=== PATIENT | male | born 1950 | race Caucasian/White ===

== ENCOUNTER 2016-06-11 13:48 | Emergency (ER) | payer SELFPAY ==
[2016-06-11] MEDS ORDERED: ASPIRIN 81 MG TABLET, CHEWABLE PO ONE (14:09)
--- NOTE | 2016-06-11 14:09 | ER Document Report ---
ED Medical Screen (RME) - General Stated Complaint: CHEST PAIN Notes: patient is a 65 year old male p/w chest pain and productive cough for one week that has gooten worse about two days ago. SOB, dyspnea. Chest pain is worse with cough. Albuterol nebulizers helping with cough. PMH: COPD on 3L, CAD former smoker Stress test 3-4 years ago but denies cath I have greeted and performed a rapid initial assessment of this patient. A comprehensive ED assessment and evaluation of the patient, analysis of test results and completion of the medical decision making process will be conducted by additional ED providers. TRAVEL OUTSIDE OF THE [place] IN LAST 30 DAYS: No - Related Data Allergies/Adverse Reactions: No Known Allergies Allergy (Verified 06/11/16 14:05) Past Medical History Pulmonary Medical History: Reports: Hx COPD Neurological Medical History: Denies: Hx Seizures Psychiatric Medical History: Denies: Hx Depression - Immunizations Hx Diphtheria, Pertussis, Tetanus Vaccination: Yes Physical Exam - Vital signs Vitals: Temp Pulse Resp BP Pulse Ox 98.1 F 115 H 16 120/67 84 L 06/11/16 14:00 06/11/16 14:00 06/11/16 14:00 06/11/16 14:00 06/11/16 14:00 Course - Vital Signs Vital signs: Temp Pulse Resp BP Pulse Ox 98.1 F 115 H 16 120/67 84 L 06/11/16 14:00 06/11/16 14:00 06/11/16 14:00 06/11/16 14:00 06/11/16 14:00
[2016-06-11] MEDS ORDERED: METHYLPREDNISOLONE INJ 125 MG/2 ML SDV IV ONE (14:10)
[2016-06-11] MEDS ORDERED: IPRATROPIUM/ALBUTEROL 0.5-2.5 MG/3 ML AMPUL NEB ONE (14:10)
[2016-06-11 14:46] LABS: HEMATOCRIT 50.9 % (37.9-51.0); HEMOGLOBIN 17.3 g/dL (13.5-17.0); MEAN CORPUSCULAR HEMOGLOBIN 34.1 pg (27.0-33.4); MEAN CORPUSCULAR VOLUME 100 fl (80-97); RED BLOOD COUNT 5.07 10^6/uL (4.35-5.55); RED CELL DISTRIBUTION WIDTH 13.4 % (11.5-14.0); WHITE BLOOD COUNT 10.2 10^3/uL (4.0-10.5)
[2016-06-11] MEDS: ALBUTEROL SULFATE 0.083% NEB 2.5 MG/3 ML AMPUL NEB SCH ×2 (14:56→15:22)
[2016-06-11 15:07] LABS: BAND NEUTROPHILS % (MANUAL) 6 % (3-5); BASOPHILS % (MANUAL) 0 % (0-2); EOSINOPHILS % (MANUAL) 0 % (0-6); LYMPHOCYTES % (MANUAL) 14 % (13-45); TOTAL CELLS COUNTED 100
[2016-06-11 15:08] LABS: POLYCHROMASIA 1+
[2016-06-11 15:10] LABS: ALANINE AMINOTRANSFERASE 33 U/L (21-72); ALBUMIN 4.2 g/dL (3.5-5.0); ALKALINE PHOSPHATASE 91 U/L (38-126); ANION GAP 14 (5-19); ASPARTATE AMINO TRANSFERASE 43 U/L (17-59); BILIRUBIN,TOTAL 0.6 mg/dL (0.2-1.3); BLOOD UREA NITROGEN 10 mg/dL (7-20); CALCIUM 9.8 mg/dL (8.4-10.2); CARBON DIOXIDE 37 mmol/L (22-30); CHLORIDE 88 mmol/L (98-107); CREATINE KINASE 26 U/L (55-170); CREATININE RESULT 0.55 mg/dL (0.52-1.25); GLUCOSE 124 mg/dL (75-110); POTASSIUM 4.2 mmol/L (3.6-5.0); SODIUM 139.4 mmol/L (137-145); TOTAL PROTEIN 7.9 g/dL (6.3-8.2)
--- NOTE | 2016-06-11 15:12 | ER Document Report ---
ED Respiratory Problem - General Mode of Arrival: Ambulatory Information source: Patient TRAVEL OUTSIDE OF THE [place] IN LAST 30 DAYS: No - HPI Patient complains to provider of: Short of breath <NERI FUNES - Last Filed: 06/11/16 19:43> <EMMA LA - Last Filed: 06/17/16 22:29> - General Chief Complaint: Chest Pain Stated Complaint: CHEST PAIN Notes: Patient is a 65-year-old male that presents to the emergency department today with complaints of shortness of breath. Patient states he is on 3L of home O2 at all times. Patient states his son had an upper respiratory illness recently and he visited him so he believes he caught a virus from his son. Patient states he has albuterol treatments at home. Patient states he has had a cough and chills at home. Patient denies any fevers or recent steroid use. (NERI FUNES) - Related Data Allergies/Adverse Reactions: No Known Allergies Allergy (Verified 06/11/16 14:05) Past Medical History - General Information source: Patient - Social History Smoking Status: Former Smoker Cigarette use (# per day): No Chew tobacco use (# tins/day): No Frequency of alcohol use: None Drug Abuse: None Lives with: Family Family History: Reviewed & Not Pertinent Patient has suicidal ideation: No Patient has homicidal ideation: No Pulmonary Medical History: Reports: Hx COPD Surgical Hx: Negative - Immunizations Hx Diphtheria, Pertussis, Tetanus Vaccination: Yes <NERI FUNES - Last Filed: 06/11/16 19:43> Review of Systems - Review of Systems Constitutional: See HPI, Chills. denies: Fever EENT: No symptoms reported Cardiovascular: No symptoms reported Respiratory: See HPI, Cough, Short of breath Gastrointestinal: No symptoms reported Genitourinary: No symptoms reported Male Genitourinary: No symptoms reported Musculoskeletal: No symptoms reported Skin: No symptoms reported Hematologic/Lymphatic: No symptoms reported Neurological/Psychological: No symptoms reported -: Yes All other systems reviewed and negative <NREI FUNES - Last Filed: 06/11/16 19:43> Physical Exam - General General appearance: Appears well, Alert In distress: None - HEENT Head: Normocephalic, Atraumatic Eyes: Normal Extraocular movements intact: Yes - Respiratory Respiratory status: No respiratory distress Breath sounds: Wheezing - expiratory Chest palpation: Normal - Cardiovascular Rhythm: Regular Heart sounds: Normal auscultation Murmur: No - Abdominal Inspection: Normal Distension: No distension Bowel sounds: Normal Tenderness: Nontender - Extremities General upper extremity: Normal inspection, Normal ROM. No: Edema General lower extremity: Normal inspection, Normal ROM. No: Edema - Neurological Neuro grossly intact: Yes Cognition: Normal Orientation: AAOx4 Speech: Normal - Psychological Associated symptoms: Normal affect, Normal mood - Skin Skin Temperature: Warm Skin Moisture: Dry Skin Color: Normal <NERI FUNES - Last Filed: 06/11/16 19:43> Course - Laboratory Result Diagrams: 06/11/16 14:15 06/11/16 14:15 <NERI FUNES - Last Filed: 06/11/16 19:43> - Laboratory Result Diagrams: 06/11/16 14:15 06/11/16 14:15 <EMMA LA - Last Filed: 06/17/16 22:29> - Re-evaluation Re-evalutation: 06/11/16 19:01 I personally performed the services described in the documentation, reviewed and edited the documentation which was dictated to my scribe in my presence, and it accurately records my words and actions. Patient with a history of severe COPD presents with a one-week history of cough and chest congestion. He was a long-time smoker quit recently started and then quit again. He says his chest hurts only with coughing. He is on 3 L of oxygen at home not taking anything other than albuterol. No fevers chills chest pain pressure or exertional chest pain or showers breath denies a cardiac history no nausea vomiting dull pain history DVT or pulmonary emboli. On examination he is well-appearing nontoxic 89-92% on his 3 L that he takes at home. Normotensive lungs with expiratory wheeze improved with albuterol and Solu-Medrol. Chest x- ray negative for pneumonia negative acute labs. We will discharge on steroids told to take [id number] allergy medication for primary care physician to 3 days and discussed reasons for ED return sooner 06/11/16 19:03 06/11/16 19:07 (EMMA LA) - Vital Signs Vital signs: Temp Pulse Resp BP Pulse Ox 98 F 115 H 16 128/98 H 91 L 06/11/16 19:00 06/11/16 14:00 06/11/16 19:03 06/11/16 19:03 06/11/16 19:03 - Laboratory Laboratory results interpreted by me: 06/11/16 06/11/16 14:15 14:15 Hgb 17.3 H MCV 100 H MCH 34.1 H Band Neutrophils % 6 H Monocytes % (Manual) 17 H Abs Monocytes (Manual) 1.7 H Chloride 88 L Carbon Dioxide 37 H Glucose 124 H Creatine Kinase 26 L Discharge <NERI FUNES - Last Filed: 06/11/16 19:43> <EMMA LA - Last Filed: 06/17/16 22:29> - Discharge Clinical Impression: COPD (chronic obstructive pulmonary disease) Qualifiers: COPD type: emphysema Emphysema type: unspecified Qualified Code(s): J43.9 - Emphysema, unspecified Condition: Stable Disposition: HOME, SELF-CARE Additional Instructions: Bronchitis/copd You have acute bronchitis. This disease is an infection or inflammation of the air passageways in your lungs. Symptoms usually include cough, low grade fever, shortness of breath, and wheezing. The cough usually persists for a couple of weeks. Most cases of bronchitis get better without antibiotics. We prescribe antibiotics when we believe bacteria are damaging your airways, or if there's high risk the bronchitis will worsen into pneumonia. Increase your fluid intake. A cool mist humidifier may make your lungs more comfortable. An expectorant (cough medicine that loosens phlegm) can help. If you smoke, STOP!!! Recovery from bronchitis can be somewhat slow, but you should see improvement within a day or two. Repeated episodes of bronchitis may result in lung damage -- for example, chronic bronchitis, recurrent pneumonias, or emphysema. Call the doctor if you develop increasing fever, shortness of breath, chest pain, bloody sputum, or otherwise worsen. If you have not improved at all after several days, contact the physician. Prescriptions: Prednisone [Deltasone 20 mg Tablet] 3 tab PO DAILY 5 Days Referrals: [facility] [Provider Group] - Follow up as needed (Follow-up with your primary care physician in 2-3 days return for increasing worsening or new symptoms) Scribe Documentation - Scribe Written by Ginny:: Ginny Kc, 06/11/2016 1940 acting as scribe for :: Jose <NERI FUNES - Last Filed: 06/11/16 19:43>
[2016-06-11 15:21] LABS: CREATINE KINASE MB 0.69 ng/mL (<4.55)
[2016-06-11 15:23] LABS: TROPONIN I < 0.012 ng/mL
[2016-06-11] MEDS ORDERED: LIDOCAINE 0.5% INJ-PF (5 MG/ML) 50 ML SDV NEB ONE (16:15)
[2016-06-11 19:28] VITALS: BP 128/98
--- NOTE | 2016-06-11 20:04 | EKG REPORT ---
SEVERITY:- ABNORMAL ECG - SINUS TACHYCARDIA BIATRIAL ABNORMALITIES LEFT ANTERIOR FASCICULAR BLOCK : Confirmed by: Jason Martinez 11-Jun-2016 20:02:00
== END 2016-06-11 19:17 | disposition home or self-care (01) ==
LOC: ER 13:48
DX: J44.9 Chronic obstructive pulmonary disease, unspecified (principal); Z99.81 Dependence on supplemental oxygen; R06.02 Shortness of breath; R07.89 Other chest pain; R05 Cough; R68.83 Chills (without fever); R09.89 Other specified symptoms and signs involving the circulatory and respiratory systems; Z87.891 Personal history of nicotine dependence; Z79.899 Other long term (current) drug therapy
CPT/HCPCS: 93005; 94640 ×2; 99285; 96374; 36415; 82553; 82550; 85025; 80053; 84484; 83880; 71010; 93010; J3490; J2930; J7620

== ENCOUNTER 2016-08-20 10:01 | Inpatient (IN) | payer MEDICARE ==
[2016-08-20] MEDS ORDERED: IPRATROPIUM/ALBUTEROL 0.5-2.5 MG/3 ML AMPUL NEB ONE (10:36)
--- NOTE | 2016-08-20 10:58 | ER Document Report ---
ED Respiratory Problem - General Chief Complaint: Shortness Of Breath Stated Complaint: DIFFICULTY BREATHING Time Seen by Provider: 08/20/16 10:30 Notes: The patient is a 65-year-old male, past medical history COPD (on home 2-3 L O2) , smoker, presents with increasing shortness of breath and wheezing over the past 3 days. He has been using his albuterol inhaler without much relief at home. He received 125 mg of Solu-Medrol and 1 albuterol prior to arrival by EMS. He said a family member was having cold symptoms last week and he started to develop a productive green cough this week. Denies chest pain, leg swelling , hemoptysis, nausea, vomiting, fevers, back pain or recent travel. TRAVEL OUTSIDE OF THE [place] IN LAST 30 DAYS: No - Related Data Allergies/Adverse Reactions: No Known Allergies Allergy (Verified 06/11/16 14:05) Past Medical History - General Information source: Patient - Social History Smoking Status: Current Every Day Smoker Family History: Reviewed & Not Pertinent Pulmonary Medical History: Reports: Hx COPD Neurological Medical History: Denies: Hx Seizures Renal/ Medical History: Denies: Hx Peritoneal Dialysis Psychiatric Medical History: Denies: Hx Depression Past Surgical History: Reports: Hx Orthopedic Surgery - Immunizations Hx Diphtheria, Pertussis, Tetanus Vaccination: Yes Review of Systems - Review of Systems Notes: REVIEW OF SYSTEMS: CONSTITUTIONAL: -fevers, -chills EENT: -eye pain, -difficulty swallowing, -nasal congestion CARDIOVASCULAR:-chest pain, -syncope. RESPIRATORY: +cough, +SOB GASTROINTESTINAL: -abdominal pain, -nausea, -vomiting, -diarrhea GENITOURINARY: -dysuria, -hematuria MUSCULOSKELETAL: -back pain, -neck pain SKIN: -rash or skin lesions. HEMATOLOGIC: -easy bruising or bleeding. LYMPHATIC: -swollen, enlarged glands. NEUROLOGICAL: -altered mental status or loss of consciousness, -headache, - neurologic symptoms PSYCHIATRIC: -anxiety, -depression. ALL OTHER SYSTEMS REVIEWED AND NEGATIVE. Physical Exam - Vital signs Vitals: Temp Resp 98.4 F 22 H 08/20/16 10:15 08/20/16 10:15 - Notes Notes: PHYSICAL EXAMINATION: GENERAL: Mild distress. HEAD: Atraumatic, normocephalic. EYES: Pupils equal round and reactive to light, extraocular movements intact, sclera anicteric, conjunctiva are normal. ENT: nares patent, oropharynx clear without exudates. Moist mucous membranes. NECK: Normal range of motion, supple without lymphadenopathy LUNGS: Diffuse wheezing and coarse breath sounds. HEART: Tachycardic, regular rhythm ABDOMEN: Soft, nontender, normoactive bowel sounds. No guarding, no rebound. No masses appreciated. EXTREMITIES: Normal range of motion, no pitting or edema. No cyanosis. NEUROLOGICAL: Cranial nerves grossly intact. Normal speech, normal gait. Normal sensory, motor, and reflex exams. PSYCH: Normal mood, normal affect. SKIN: Warm, Dry, normal turgor, no rashes or lesions noted. Course - Re-evaluation Re-evalutation: After DuoNebs and steroids, patient remains very wheezy, tachypneic and tachycardic. We will add magnesium, continuous albuterol and cover with Levaquin for new green sputum today. Will also begin BiPap for hypercarbic acidosis and tachypnea. After magnesium, continuous albuterol, Levaquin and BiPap, pt is feeling much better. CTA is negative for PE and CXR does not show an acute process. His tachypnea and wheezing improved. 08/20/16 14:[address] Shaffer and will admit patient as Inpatient to [facility] on Bipap. - Vital Signs Vital signs: Temp Pulse Resp BP Pulse Ox 98.4 F 17 136/96 H 95 08/20/16 10:15 08/20/16 14:00 08/20/16 11:01 08/20/16 14:00 - Laboratory Result Diagrams: 08/20/16 10:20 08/20/16 10:20 Laboratory results interpreted by me: 08/20/16 08/20/16 08/20/16 10:20 10:20 10:20 RBC 5.65 H Hgb 19.0 H Hct 57.2 H MCV 101 H MCH 33.7 H RDW 14.9 H Plt Count 107 L Monocytes % 19.0 H VBG pH 7.28 L VBG pCO2 78.5 H* VBG HCO3 35.6 H Chloride 92 L Carbon Dioxide 31 H BUN 5 L Direct Bilirubin 0.5 H AST 97 H Creatine Kinase 228 H Lipase 18.3 L - Diagnostic Test Radiology reviewed: Image reviewed, Reports reviewed Radiology results interpreted by me: CXR: COPD. NAD CTA: No PE. NAD. - EKG Interpretation by Me EKG shows normal: Sinus rhythm, [place], Intervals, QRS Complexes, ST-T Waves Rate: Tachycardia When compared to previous EKG there are: Previous EKG unavailable Additional EKG results interpreted by me: Abnormal R wave progression Critical Care Note - Critical Care Note Total time excluding time spent on procedures (mins): 45 Discharge - Discharge Clinical Impression: COPD with exacerbation Condition: Stable Disposition: ADMITTED INPATIENT Admitting Provider: Annieist Dwayne Shaffer Unit Admitted: [facility]
[2016-08-20 10:59] LABS: VENOUS BLOOD BASE EXCESS 4.5 mmol/L; VENOUS BLOOD HCO3 35.6 mmol/L (20-32); VENOUS BLOOD PH 7.28 (7.30-7.42)
[2016-08-20 11:02] LABS: VENOUS BLOOD PCO2 78.5 mmHg (35-63)
[2016-08-20 11:05] LABS: ABSOLUTE EOSINOPHILS # (AUTO) 0.1 10^3/uL (0.0-0.6); ABSOLUTE LYMPHOCYTES (AUTO) 0.7 10^3/uL (0.5-4.7); ABSOLUTE NEUT (AUTO) 3.4 10^3/uL (1.7-8.2); BASOPHILS % (AUTO) 0.3 % (0-2); EOSINOPHILS % (AUTO) 2.1 % (0-6); HEMATOCRIT 57.2 % (37.9-51.0); HGB HCT DIFFERENCE -0.2; LYMPHOCYTES % (AUTO) 13.1 % (13-45); MEAN CORPUSCULAR HEMOGLOBIN 33.7 pg (27.0-33.4); MEAN CORPUSCULAR HGB CONC 33.3 g/dL (32.0-36.0); MEAN CORPUSCULAR VOLUME 101 fl (80-97); RED BLOOD COUNT 5.65 10^6/uL (4.35-5.55); RED CELL DISTRIBUTION WIDTH 14.9 % (11.5-14.0); SEGMENTED NEUTROPHILS % (AUTO) 65.5 % (42-78); WHITE BLOOD COUNT 5.2 10^3/uL (4.0-10.5)
[2016-08-20 11:34] LABS: ALANINE AMINOTRANSFERASE 56 U/L (21-72); ALBUMIN 4.1 g/dL (3.5-5.0); ALKALINE PHOSPHATASE 73 U/L (38-126); ANION GAP 15 (5-19); ASPARTATE AMINO TRANSFERASE 97 U/L (17-59); BILIRUBIN,DIRECT 0.5 mg/dL (0.0-0.4); BILIRUBIN,TOTAL 0.7 mg/dL (0.2-1.3); BLOOD UREA NITROGEN 5 mg/dL (7-20); CALCIUM 8.9 mg/dL (8.4-10.2); CARBON DIOXIDE 31 mmol/L (22-30); CHLORIDE 92 mmol/L (98-107); CREATINE KINASE 228 U/L (55-170); CREATININE RESULT 0.58 mg/dL (0.52-1.25); GLUCOSE 105 mg/dL (75-110); LIPASE 18.3 U/L (23-300); POTASSIUM 4.2 mmol/L (3.6-5.0); SODIUM 137.9 mmol/L (137-145); TOTAL PROTEIN 7.2 g/dL (6.3-8.2)
[2016-08-20 11:37] LABS: TROPONIN I < 0.012 ng/mL
[2016-08-20] MEDS: NORMAL SALINE 1000 ML 1,000 ML IV PRN ×3 (12:07→17:56)
[2016-08-20] MEDS ORDERED: ALBUTEROL SULFATE 0.083% NEB 2.5 MG/3 ML AMPUL NEB ONE (12:31)
[2016-08-20] MEDS ORDERED: LEVOFLOXACIN 750 MG/D5W RTU 150 ML IV ONE (12:34)
[2016-08-20] MEDS: MAGNESIUM SULFATE/D5W 100 ML IV SCH ×2 (13:02→14:49)
[2016-08-20] MEDS ORDERED: LEVALBUTEROL HCL NEB 1.25 MG/3 ML AMPUL NEB PRN (16:59)
[2016-08-20] MEDS ORDERED: ONDANSETRON HCL INJ/PF 4 MG/2 ML SDV IV PRN (17:04)
[2016-08-20] MEDS ORDERED: METHYLPREDNISOLONE INJ 125 MG/2 ML SDV IV SCH (17:15)
--- NOTE | 2016-08-20 17:31 | PDOC H&P ---
History of Present Illness Admission Date/PCP: 08/20/16 14:48 Patient complains of: SOB History of Present Illness: JULIA UNDERWOOD SR is a 65 year old male, w/ COPD, exposed to someone sick w/ virus 2 weeks ago w/ cough and sinus congestion developed colds and cough 3 days later. Since then, he started to have mild SOB and wheezing that improves w / his inhalers. He developed low grade fever as well that eventually resolved. The SOB persisted. He bacame weak and for the past several days, cough became paroxysmal and he started developing pleurisy. Cough is now productive of greenish phlegm. He developed dyspnea on exertion even w/ mild activity. He presented to ED . He was hypoxic and hypercarbic and acidotic. He was given nebulizers and placed on BIPAP. He was then refered for admission. No sorethroat or headache nor sinus congestion. Past Medical History Past Medical History: Medication reconcillation PND verification from patients pharmacist. Cardiac Medical History: Reports: Congestive Heart Failure - diastolic dysfx. Pulmonary Medical History: Reports: Chronic Obstructive Pulmonary Disease (COPD) , Other - Pulmonary hypertension Neurological Medical History: Denies: Seizures Psychiatric Medical History: Reports: Substance Abuse - alcohol, Tobacco Dependency Denies: Depression Past Surgical History Past Surgical History: Reports: Orthopedic Surgery Social History Smoking Status: Current Every Day Smoker - quit last week. Frequency of Alcohol Use: Occasional Hx Recreational Drug Use: Yes Drugs: Marijuana Hx Prescription Drug Abuse: No Family History Family History: Hypertension Parental Family History Reviewed: Yes Children Family History Reviewed: Yes Sibling(s) Family History Reviewed.: Yes Medication/Allergy Allergies/Adverse Reactions: No Known Allergies Allergy (Verified 06/11/16 14:05) Review of Systems Constitutional: PRESENT: fever(s). ABSENT: chills, headache(s), night sweats, weight gain, weight loss Eyes: ABSENT: visual disturbances Ears: ABSENT: hearing changes Nose, Mouth, and Throat: ABSENT: mouth pain, sore throat Cardiovascular: PRESENT: chest pain, dyspnea on exertion. ABSENT: edema, orthropnea, palpitations Respiratory: PRESENT: cough, dyspnea, sputum. ABSENT: hemoptysis Gastrointestinal: ABSENT: abdominal pain, constipation, diarrhea, hematemesis, hematochezia, melena, nausea, vomiting Genitourinary: ABSENT: difficulty urinating, dysuria, hematuria Musculoskeletal: ABSENT: joint swelling Integumentary: ABSENT: pruritus, rash, wounds Neurological: ABSENT: abnormal gait, abnormal speech, confusion, dizziness, focal weakness, syncope Psychiatric: ABSENT: anxiety, depression, homidical ideation, suicidal ideation Endocrine: ABSENT: cold intolerance, heat intolerance, polydipsia, polyuria Hematologic/Lymphatic: ABSENT: easy bleeding, easy bruising Physical Exam Vital Signs: Temp Pulse Resp BP Pulse Ox 98 F 18 129/112 H 91 L 08/20/16 16:11 08/20/16 16:11 08/20/16 16:11 08/20/16 16:11 General appearance: PRESENT: no acute distress, well-developed, other - on BIPAP Head exam: PRESENT: atraumatic, normocephalic Eye exam: PRESENT: conjunctiva pink, EOMI, PERRLA. ABSENT: scleral icterus Ear exam: PRESENT: normal external ear exam. ABSENT: drainage Mouth exam: PRESENT: dry mucosa, neck supple, tongue midline Throat exam: ABSENT: post pharyngeal erythema, tonsillar erythema, tonsillar exudate Neck exam: ABSENT: carotid bruit, JVD, lymphadenopathy, thyromegaly Respiratory exam: PRESENT: decreased breath sounds - B/L, rhonchi - few B/L, wheezes - mild, expiratory. ABSENT: rales Cardiovascular exam: PRESENT: RRR. ABSENT: diastolic murmur, rubs, systolic murmur Pulses: PRESENT: normal dorsalis pedis pul Vascular exam: PRESENT: normal capillary refill GI/Abdominal exam: PRESENT: normal bowel sounds, soft. ABSENT: distended, guarding, mass, organolmegaly, rebound, tenderness Rectal exam: PRESENT: deferred Extremities exam: PRESENT: full ROM. ABSENT: calf tenderness, clubbing, pedal edema Neurological exam: PRESENT: alert, awake, oriented to person, oriented to place , oriented to time, oriented to situation Psychiatric exam: PRESENT: appropriate affect, normal mood. ABSENT: homicidal ideation, suicidal ideation Skin exam: PRESENT: dry, intact, warm. ABSENT: cyanosis, rash Results Impressions: Chest X-Ray 08/20/16 10:31 IMPRESSION: COPD. NO ACUTE RADIOGRAPHIC FINDING IN THE CHEST. Chest/Abdomen CTA 08/20/16 11:17 IMPRESSION: NORMAL CTA OF THE CHEST. NO PULMONARY EMBOLI. Assessment & Plan - Diagnosis (1) Acute respiratory failure Qualifiers: Respiratory failure complication: hypoxia and hypercapnia Qualified Code(s): J96.01 - Acute respiratory failure with hypoxia; J96.02 - Acute respiratory failure with hypercapnia Is this a current diagnosis for this admission?: Yes (2) COPD with exacerbation Is this a current diagnosis for this admission?: Yes (3) Elevated hematocrit Is this a current diagnosis for this admission?: Yes (4) CHF (congestive heart failure) Qualifiers: Congestive heart failure type: diastolic Congestive heart failure chronicity: chronic Qualified Code(s): I50.32 - Chronic diastolic ( congestive) heart failure Is this a current diagnosis for this admission?: Yes (5) Alcohol abuse Is this a current diagnosis for this admission?: Yes (6) Pulmonary hypertension Is this a current diagnosis for this admission?: Yes (7) Thrombocytopenia Is this a current diagnosis for this admission?: Yes - Time Time Spent: 50 to 70 Minutes - Inpatient Certification Based on my medical assessment, after consideration of the patient's comorbidities, presenting symptoms, or acuity I expect that the services needed warrant INPATIENT care.: Yes I certify that my determination is in accordance with my understanding of Medicare's requirements for reasonable and necessary INPATIENT services [42 CFR 412.3e].: Yes Medical Necessity: Significant Comorbidiites Make Outpatient Treatment Too Risky , Need Close Monitoring Due to Risk of Patient Decompensation, Need For Continuous Telemetry Monitoring, Risk of Complication if Not Cared For in Hospital, Risk of Diagnosis Which Will Require Inpatient Eval/Care/Monitoring Post Hospital Care: [employer] Mechanic Documentation - Plan Summary Plan Summary: Admit to IMCU. Continue BIPAP. Begin IV steroids and RTC nebulizers. Culture the sputum and begin oral antibx. Gently hydrate and monitor Hct/plt. Arixtra for DVT prophylaxis. Further testing depends on the initial evaluation as outlined above.
[2016-08-20] MEDS: METHYLPREDNISOLONE INJ 125 MG/2 ML SDV IV SCH (17:55)
[2016-08-20] MEDS: DOCUSATE SODIUM 100 MG CAPSULE PO SCH (17:55)
[2016-08-20] MEDS: LEVALBUTEROL HCL NEB 1.25 MG/3 ML AMPUL NEB SCH (20:49)
[2016-08-20] MEDS: IPRATROPIUM BROMIDE 0.02% NEB 0.5 MG/2.5 ML AMPUL NEB SCH (20:50)
[2016-08-21] MEDS: IPRATROPIUM BROMIDE 0.02% NEB 0.5 MG/2.5 ML AMPUL NEB SCH ×7 (00:21→23:48)
[2016-08-21] MEDS: LEVALBUTEROL HCL NEB 1.25 MG/3 ML AMPUL NEB SCH ×7 (00:21→23:48)
[2016-08-21] MEDS: METHYLPREDNISOLONE INJ 125 MG/2 ML SDV IV SCH ×4 (01:17→18:18)
[2016-08-21] MEDS: LANSOPRAZOLE 30 MG TAB.RAP.DR PO SCH (06:35)
--- NOTE | 2016-08-21 07:11 | EKG REPORT ---
SEVERITY:- ABNORMAL ECG - SINUS TACHYCARDIA MULTIPLE VENTRICULAR PREMATURE COMPLEXES PROBABLE LEFT ATRIAL ABNORMALITY INFERIOR INFARCT, AGE INDETERMINATE ABNRM R PROG, CONSIDER ASMI OR LEAD PLACEMENT : Confirmed by: Angeles Lamas MD 21-Aug-2016 07:11:08
[2016-08-21 07:22] LABS: ANION GAP 5 (5-19); BLOOD UREA NITROGEN 5 mg/dL (7-20); CALCIUM 8.5 mg/dL (8.4-10.2); CARBON DIOXIDE 35 mmol/L (22-30); CHLORIDE 97 mmol/L (98-107); GLUCOSE 144 mg/dL (75-110); POTASSIUM 4.8 mmol/L (3.6-5.0); SODIUM 137.3 mmol/L (137-145)
[2016-08-21 07:30] LABS: HEMATOCRIT 51.9 % (37.9-51.0); HGB HCT DIFFERENCE -0.9; MEAN CORPUSCULAR HEMOGLOBIN 33.5 pg (27.0-33.4); MEAN CORPUSCULAR HGB CONC 32.7 g/dL (32.0-36.0); RED BLOOD COUNT 5.07 10^6/uL (4.35-5.55); RED CELL DISTRIBUTION WIDTH 14.9 % (11.5-14.0); WHITE BLOOD COUNT 5.7 10^3/uL (4.0-10.5)
[2016-08-21 07:52] LABS: MEAN CORPUSCULAR VOLUME 102 fl (80-97)
--- NOTE | 2016-08-21 08:38 | PDOC PROGRESS REPORT ---
Subjective Progress Note for:: 08/21/16 Subjective:: Breathing better. Wheezing is less. No temp spikes, CP, N/V. No diarrhea. Tried to wean BIPAP but desaturates. Abdominal muscles sore from coughing. Physical Exam Vital Signs: Temp Pulse Resp BP Pulse Ox 98.2 F 95 17 111/95 H 94 08/21/16 04:00 08/21/16 07:48 08/21/16 08:01 08/21/16 08:01 08/21/16 08:01 Intake & Output 08/20/16 08/21/16 08/22/16 06:59 06:59 06:59 Output Total 1900 Balance -1900 General appearance: PRESENT: no acute distress, cooperative, other - on BIPAP Head exam: PRESENT: normocephalic Eye exam: PRESENT: conjunctiva pink, EOMI Mouth exam: PRESENT: moist, neck supple Neck exam: ABSENT: JVD Respiratory exam: PRESENT: rhonchi - occasional, wheezes - mild B/L Cardiovascular exam: PRESENT: RRR. ABSENT: gallop GI/Abdominal exam: PRESENT: soft. ABSENT: distended, tenderness Extremities exam: ABSENT: pedal edema Neurological exam: PRESENT: alert, awake, oriented to situation Skin exam: PRESENT: dry, warm. ABSENT: cyanosis Results Laboratory Results: 08/21/16 06:48 08/21/16 06:48 08/21/16 08/21/16 06:48 06:48 WBC 5.7 RBC 5.07 Hgb 17.0 Hct 51.9 H MCV 102 H MCH 33.5 H MCHC 32.7 RDW 14.9 H Plt Count 108 L Sodium 137.3 Potassium 4.8 Chloride 97 L Carbon Dioxide 35 H Anion Gap 5 BUN 5 L Creatinine 0.50 L Est GFR ( Amer) > 60 Est GFR (Non-Af Amer) > 60 Glucose 144 H Calcium 8.5 Impressions: Chest X-Ray 08/20/16 10:31 IMPRESSION: COPD. NO ACUTE RADIOGRAPHIC FINDING IN THE CHEST. Chest/Abdomen CTA 08/20/16 11:17 IMPRESSION: NORMAL CTA OF THE CHEST. NO PULMONARY EMBOLI. Assessment & Plan - Diagnosis (1) Acute respiratory failure Qualifiers: Respiratory failure complication: hypoxia and hypercapnia Qualified Code(s): J96.01 - Acute respiratory failure with hypoxia Is this a current diagnosis for this admission?: Yes (2) COPD with exacerbation Is this a current diagnosis for this admission?: Yes (3) Elevated hematocrit Is this a current diagnosis for this admission?: Yes (4) CHF (congestive heart failure) Qualifiers: Congestive heart failure type: diastolic Congestive heart failure chronicity: chronic Qualified Code(s): I50.32 - Chronic diastolic ( congestive) heart failure Is this a current diagnosis for this admission?: Yes (5) Alcohol abuse Is this a current diagnosis for this admission?: Yes (6) Pulmonary hypertension Is this a current diagnosis for this admission?: Yes (7) Thrombocytopenia Is this a current diagnosis for this admission?: Yes - Time Time Spent with patient: 25-34 minutes - Plan Summary Plan Summary: Cont. BIPAP. Check CXR post hydration. May have underlying infiltrate. Cont. IV steroids and nebulizers. Cont. supportive care.
[2016-08-21] MEDS: FONDAPARINUX SODIUM INJ 2.5 MG/0.5 ML DISP.SYRIN SUBCUT SCH (09:08)
[2016-08-21] MEDS: LEVOFLOXACIN 750 MG TABLET PO SCH (09:08)
[2016-08-21] MEDS: DOCUSATE SODIUM 100 MG CAPSULE PO SCH ×2 (09:08→18:18)
[2016-08-22] MEDS: METHYLPREDNISOLONE INJ 125 MG/2 ML SDV IV SCH ×5 (00:08→23:52)
[2016-08-22] MEDS: NORMAL SALINE 1000 ML 1,000 ML IV PRN ×2 (02:51→19:23)
[2016-08-22] MEDS: LEVALBUTEROL HCL NEB 1.25 MG/3 ML AMPUL NEB SCH ×6 (04:13→23:52)
[2016-08-22] MEDS: IPRATROPIUM BROMIDE 0.02% NEB 0.5 MG/2.5 ML AMPUL NEB SCH ×6 (04:13→23:52)
[2016-08-22] MEDS: LANSOPRAZOLE 30 MG TAB.RAP.DR PO SCH (05:04)
[2016-08-22] MEDS: ACETAMINOPHEN 325 MG TABLET PO PRN (05:11)
--- NOTE | 2016-08-22 09:04 | PDOC PROGRESS REPORT ---
Subjective Progress Note for:: 08/22/16 Subjective:: Breathing better. Wheezing is less. Has chronic wheezing and goes to see MD only when it gets worse. No temp spikes, CP, N/V. No diarrhea. Being weaned from BIPAP. Abdominal muscles still sore from coughing. Physical Exam Vital Signs: Temp Pulse Resp BP Pulse Ox 97.4 F 83 28 H 116/61 93 08/22/16 07:18 08/22/16 07:18 08/22/16 07:18 08/22/16 07:18 08/22/16 07:18 Intake & Output 08/21/16 08/22/16 08/23/16 06:59 06:59 06:59 Intake Total 1740 Output Total 1900 1575 Balance -1900 165 Weight 75.9 kg General appearance: PRESENT: mild distress, other - Speaks in interrupted sentences but improved from admission. Head exam: PRESENT: normocephalic Eye exam: PRESENT: EOMI Mouth exam: PRESENT: moist, neck supple Neck exam: ABSENT: JVD Respiratory exam: PRESENT: rhonchi - scattered, wheezes - expiratory Cardiovascular exam: PRESENT: irregular rhythm, RRR. ABSENT: gallop GI/Abdominal exam: PRESENT: hypoactive bowel sounds, soft. ABSENT: distended, tenderness Extremities exam: ABSENT: pedal edema Neurological exam: PRESENT: alert, awake, oriented to situation Skin exam: PRESENT: dry, warm. ABSENT: cyanosis Results Laboratory Results: 08/21/16 06:48 08/21/16 06:48 Impressions: Chest/Abdomen CTA 08/20/16 11:17 IMPRESSION: NORMAL CTA OF THE CHEST. NO PULMONARY EMBOLI. Assessment & Plan - Diagnosis (1) Acute respiratory failure Qualifiers: Respiratory failure complication: hypoxia and hypercapnia Qualified Code(s): J96.01 - Acute respiratory failure with hypoxia Is this a current diagnosis for this admission?: Yes (2) COPD with exacerbation Is this a current diagnosis for this admission?: Yes (3) Elevated hematocrit Is this a current diagnosis for this admission?: Yes (4) CHF (congestive heart failure) Qualifiers: Congestive heart failure type: diastolic Congestive heart failure chronicity: chronic Qualified Code(s): I50.32 - Chronic diastolic ( congestive) heart failure Is this a current diagnosis for this admission?: Yes (5) Alcohol abuse Is this a current diagnosis for this admission?: Yes (6) Pulmonary hypertension Is this a current diagnosis for this admission?: Yes (7) Thrombocytopenia Is this a current diagnosis for this admission?: Yes - Time Time Spent with patient: 25-34 minutes - Plan Summary Plan Summary: Continue IV steroids. Continue RTC nebulizers. Begin advair. Wean BIPAP per RT protocol. OOB. PT.
[2016-08-22] MEDS: LEVOFLOXACIN 750 MG TABLET PO SCH (09:43)
[2016-08-22] MEDS: DOCUSATE SODIUM 100 MG CAPSULE PO SCH ×2 (09:44→17:29)
[2016-08-22] MEDS: FONDAPARINUX SODIUM INJ 2.5 MG/0.5 ML DISP.SYRIN SUBCUT SCH (09:45)
[2016-08-22] MEDS: FLUTICASONE/SALMETEROL DISKUS 500-50 MCG/DOSE IH SCH ×2 (10:53→21:16)
[2016-08-23] MEDS: IPRATROPIUM BROMIDE 0.02% NEB 0.5 MG/2.5 ML AMPUL NEB SCH ×6 (03:25→23:57)
[2016-08-23] MEDS: LEVALBUTEROL HCL NEB 1.25 MG/3 ML AMPUL NEB SCH ×6 (03:25→23:57)
[2016-08-23] MEDS: METHYLPREDNISOLONE INJ 125 MG/2 ML SDV IV SCH (05:42)
[2016-08-23] MEDS: LANSOPRAZOLE 30 MG TAB.RAP.DR PO SCH (05:42)
[2016-08-23] MEDS: FONDAPARINUX SODIUM INJ 2.5 MG/0.5 ML DISP.SYRIN SUBCUT SCH (10:04)
[2016-08-23] MEDS: ACETAMINOPHEN 325 MG TABLET PO PRN (10:07)
[2016-08-23] MEDS: DOCUSATE SODIUM 100 MG CAPSULE PO SCH ×2 (10:07→17:27)
[2016-08-23] MEDS: LEVOFLOXACIN 750 MG TABLET PO SCH (10:08)
[2016-08-23] MEDS: FLUTICASONE/SALMETEROL DISKUS 500-50 MCG/DOSE IH SCH ×2 (10:11→21:21)
--- NOTE | 2016-08-23 11:07 | PDOC PROGRESS REPORT ---
Subjective Progress Note for:: 08/23/16 Subjective:: Still requiring BIPAP. On nasal canula goes up to 5L and O2 sat at rest > 90 but on activity, quickly drops. Denies any increasing SOB, wheezing, N/V/CP. Physical Exam Vital Signs: Temp Pulse Resp BP Pulse Ox 97.6 F 75 18 133/75 H 99 08/23/16 07:15 08/23/16 07:15 08/23/16 07:15 08/23/16 07:15 08/23/16 07:15 Intake & Output 08/22/16 08/23/16 08/24/16 06:59 06:59 06:59 Intake Total 1740 2826 Output Total 1575 1475 Balance 165 1351 Weight 75.9 kg 76.1 kg General appearance: PRESENT: no acute distress, cooperative, other - on BIPAP Head exam: PRESENT: normocephalic Eye exam: PRESENT: EOMI Mouth exam: PRESENT: moist, neck supple Neck exam: ABSENT: JVD Respiratory exam: PRESENT: decreased breath sounds, wheezes - mild Cardiovascular exam: PRESENT: RRR. ABSENT: gallop GI/Abdominal exam: PRESENT: soft. ABSENT: distended, tenderness Extremities exam: ABSENT: pedal edema Neurological exam: PRESENT: alert, awake, oriented to situation Skin exam: PRESENT: dry, warm. ABSENT: cyanosis Results Laboratory Results: 08/21/16 06:48 08/21/16 06:48 08/20/16 17:30 Sputum Gram Stain - Final 08/20/16 17:30 Sputum Sputum Culture - Final NORMAL AMIRA Impressions: Chest/Abdomen CTA 08/20/16 11:17 IMPRESSION: NORMAL CTA OF THE CHEST. NO PULMONARY EMBOLI. Chest X-Ray 08/22/16 06:00 IMPRESSION: COPD. NO ACUTE RADIOGRAPHIC FINDING IN THE CHEST. Assessment & Plan - Diagnosis (1) Acute respiratory failure Qualifiers: Respiratory failure complication: hypoxia and hypercapnia Qualified Code(s): J96.01 - Acute respiratory failure with hypoxia Is this a current diagnosis for this admission?: Yes (2) COPD with exacerbation Is this a current diagnosis for this admission?: Yes (3) Elevated hematocrit Is this a current diagnosis for this admission?: Yes (4) CHF (congestive heart failure) Qualifiers: Congestive heart failure type: diastolic Congestive heart failure chronicity: chronic Qualified Code(s): I50.32 - Chronic diastolic ( congestive) heart failure Is this a current diagnosis for this admission?: Yes (5) Alcohol abuse Is this a current diagnosis for this admission?: Yes (6) Pulmonary hypertension Is this a current diagnosis for this admission?: Yes (7) Thrombocytopenia Is this a current diagnosis for this admission?: Yes - Time Time Spent with patient: 25-34 minutes - Plan Summary Plan Summary: D/C IV steroids, begin oral prednisone, consult D/C interstate planner for home BIPAP. Cont. other medications. Follow up xray did not reveal infiltrate post hydration.
[2016-08-23] MEDS: NORMAL SALINE 1000 ML 1,000 ML IV PRN (12:24)
[2016-08-23] MEDS ORDERED: PREDNISONE 20 MG TABLET PO ONE (12:45)
[2016-08-24] MEDS: NORMAL SALINE 1000 ML 1,000 ML IV PRN (03:12)
[2016-08-24] MEDS: LEVALBUTEROL HCL NEB 1.25 MG/3 ML AMPUL NEB SCH ×6 (03:47→23:51)
[2016-08-24] MEDS: IPRATROPIUM BROMIDE 0.02% NEB 0.5 MG/2.5 ML AMPUL NEB SCH ×6 (03:47→23:51)
[2016-08-24] MEDS: LANSOPRAZOLE 30 MG TAB.RAP.DR PO SCH (05:55)
[2016-08-24] MEDS: LEVOFLOXACIN 750 MG TABLET PO SCH (09:29)
[2016-08-24] MEDS: PREDNISONE 20 MG TABLET PO SCH (09:29)
[2016-08-24] MEDS: DOCUSATE SODIUM 100 MG CAPSULE PO SCH ×2 (09:29→17:25)
[2016-08-24] MEDS: FONDAPARINUX SODIUM INJ 2.5 MG/0.5 ML DISP.SYRIN SUBCUT SCH (09:30)
[2016-08-24] MEDS: FLUTICASONE/SALMETEROL DISKUS 500-50 MCG/DOSE IH SCH ×2 (09:31→21:25)
--- NOTE | 2016-08-24 10:23 | PDOC PROGRESS REPORT ---
Subjective Progress Note for:: 08/24/16 Subjective:: Patient continues to feel better, he has chronic wheezing and states that he is getting close to baseline. He was tried to be off BiPAP yesterday but unable to. This morning he is able to tolerate, just nasal cannula oxygen without the BiPAP. Initially, he wants to have a home BiPAP now he is having second thoughts, as he does not want to be dependent on it. Denies any chest pain, nausea vomiting or diarrhea. Physical Exam Vital Signs: Temp Pulse Resp BP Pulse Ox 98.9 F 82 16 146/86 H 89 L 08/24/16 07:45 08/24/16 07:53 08/24/16 07:53 08/24/16 07:45 08/24/16 07:53 Intake & Output 08/23/16 08/24/16 08/25/16 06:59 06:59 06:59 Intake Total 2826 3100 Output Total 1475 4750 Balance 1351 -1650 Weight 76.1 kg 74 kg General appearance: PRESENT: no acute distress, cooperative Head exam: PRESENT: normocephalic Eye exam: PRESENT: EOMI Mouth exam: PRESENT: moist, neck supple Neck exam: ABSENT: JVD Respiratory exam: PRESENT: decreased breath sounds, rhonchi - Occasional bilateral, wheezes - Few expiratory wheezing bilateral Cardiovascular exam: PRESENT: RRR. ABSENT: gallop GI/Abdominal exam: PRESENT: normal bowel sounds, soft. ABSENT: distended, tenderness Extremities exam: ABSENT: pedal edema Neurological exam: PRESENT: alert, awake, oriented to person, oriented to place , oriented to time, oriented to situation Skin exam: PRESENT: dry, warm. ABSENT: cyanosis Results Laboratory Results: 08/21/16 06:48 08/21/16 06:48 08/20/16 17:30 Sputum Gram Stain - Final 08/20/16 17:30 Sputum Sputum Culture - Final NORMAL AMIRA Impressions: Chest/Abdomen CTA 08/20/16 11:17 IMPRESSION: NORMAL CTA OF THE CHEST. NO PULMONARY EMBOLI. Chest X-Ray 08/22/16 06:00 IMPRESSION: COPD. NO ACUTE RADIOGRAPHIC FINDING IN THE CHEST. Assessment & Plan - Diagnosis (1) Acute respiratory failure Qualifiers: Respiratory failure complication: hypoxia and hypercapnia Qualified Code(s): J96.01 - Acute respiratory failure with hypoxia Is this a current diagnosis for this admission?: Yes (2) COPD with exacerbation Is this a current diagnosis for this admission?: Yes (3) Elevated hematocrit Is this a current diagnosis for this admission?: Yes (4) CHF (congestive heart failure) Qualifiers: Congestive heart failure type: diastolic Congestive heart failure chronicity: chronic Qualified Code(s): I50.32 - Chronic diastolic ( congestive) heart failure Is this a current diagnosis for this admission?: Yes (5) Alcohol abuse Is this a current diagnosis for this admission?: Yes (6) Pulmonary hypertension Is this a current diagnosis for this admission?: Yes (7) Thrombocytopenia Is this a current diagnosis for this admission?: Yes - Time Time Spent with patient: 25-34 minutes - Plan Summary Plan Summary: Transition to oral steroids discontinue intravenous fluids. Continue oral antibiotic. Begin physical therapy. Patient is already on home oxygen. special events planner has been consulted for home BiPAP, in case he decides to pursue it. Continue supportive care. Routine lab works in the morning.
[2016-08-24] MEDS ORDERED: ONDANSETRON HCL INJ/PF 4 MG/2 ML SDV IV PRN (14:36)
[2016-08-25] MEDS: IPRATROPIUM BROMIDE 0.02% NEB 0.5 MG/2.5 ML AMPUL NEB SCH ×6 (03:43→23:57)
[2016-08-25] MEDS: LEVALBUTEROL HCL NEB 1.25 MG/3 ML AMPUL NEB SCH ×6 (03:43→23:57)
[2016-08-25 05:10] LABS: HEMATOCRIT 55.5 % (37.9-51.0); HEMOGLOBIN 17.9 g/dL (13.5-17.0); HGB HCT DIFFERENCE -1.8; MEAN CORPUSCULAR HEMOGLOBIN 32.8 pg (27.0-33.4); MEAN CORPUSCULAR HGB CONC 32.2 g/dL (32.0-36.0); MEAN CORPUSCULAR VOLUME 102 fl (80-97); RED BLOOD COUNT 5.45 10^6/uL (4.35-5.55); RED CELL DISTRIBUTION WIDTH 14.2 % (11.5-14.0); WHITE BLOOD COUNT 5.6 10^3/uL (4.0-10.5)
[2016-08-25 05:36] LABS: BLOOD UREA NITROGEN 14 mg/dL (7-20); CALCIUM 9.3 mg/dL (8.4-10.2); CHLORIDE 88 mmol/L (98-107); CREATININE RESULT 0.58 mg/dL (0.52-1.25); GLUCOSE 91 mg/dL (75-110); POTASSIUM 3.6 mmol/L (3.6-5.0); SODIUM 139.1 mmol/L (137-145)
[2016-08-25 05:47] LABS: ANION GAP 7 (5-19)
[2016-08-25 05:48] LABS: CARBON DIOXIDE 44 mmol/L (22-30)
[2016-08-25] MEDS: LANSOPRAZOLE 30 MG TAB.RAP.DR PO SCH (05:59)
[2016-08-25] MEDS: DOCUSATE SODIUM 100 MG CAPSULE PO SCH ×2 (09:31→17:49)
[2016-08-25] MEDS: PREDNISONE 20 MG TABLET PO SCH (09:31)
[2016-08-25] MEDS: LEVOFLOXACIN 750 MG TABLET PO SCH (09:32)
[2016-08-25] MEDS: FONDAPARINUX SODIUM INJ 2.5 MG/0.5 ML DISP.SYRIN SUBCUT SCH (09:33)
[2016-08-25] MEDS: FLUTICASONE/SALMETEROL DISKUS 500-50 MCG/DOSE IH SCH ×2 (09:34→22:14)
[2016-08-25] MEDS: ACETAMINOPHEN 325 MG TABLET PO PRN (09:37)
--- NOTE | 2016-08-25 12:02 | PDOC PROGRESS REPORT ---
Subjective Progress Note for:: 08/25/16 Subjective:: Currently on a BiPAP machine but reports he is feeling less short of breath Physical Exam Vital Signs: Temp Pulse Resp BP Pulse Ox 97.8 F 96 12 144/84 H 93 08/25/16 11:16 08/25/16 11:16 08/25/16 11:31 08/25/16 11:16 08/25/16 11:16 Intake & Output 08/24/16 08/25/16 08/26/16 06:59 06:59 06:59 Intake Total 3100 1094 Output Total 4750 4400 Balance -1650 -3306 Weight 74 kg 73.8 kg General appearance: PRESENT: no acute distress Eye exam: PRESENT: conjunctiva pink. ABSENT: scleral icterus Mouth exam: PRESENT: moist, tongue midline Neck exam: ABSENT: JVD Respiratory exam: PRESENT: wheezes - Scattered bilateral expiratory wheezes. ABSENT: rales, rhonchi Cardiovascular exam: PRESENT: RRR. ABSENT: diastolic murmur, rubs, systolic murmur GI/Abdominal exam: PRESENT: normal bowel sounds, soft. ABSENT: distended, guarding, mass, organolmegaly, rebound, tenderness Extremities exam: ABSENT: calf tenderness, clubbing, pedal edema Neurological exam: PRESENT: alert, awake, oriented to person, oriented to place , oriented to time, oriented to situation, CN II-XII grossly intact. ABSENT: motor sensory deficit Psychiatric exam: PRESENT: appropriate affect Skin exam: PRESENT: dry, intact, warm. ABSENT: cyanosis, rash Results Laboratory Results: 08/25/16 04:04 08/25/16 04:04 08/25/16 08/25/16 04:04 04:04 WBC 5.6 RBC 5.45 Hgb 17.9 H Hct 55.5 H MCV 102 H MCH 32.8 MCHC 32.2 RDW 14.2 H Plt Count 103 L Sodium 139.1 Potassium 3.6 Chloride 88 L Carbon Dioxide 44 H* Anion Gap 7 BUN 14 Creatinine 0.58 Est GFR ( Amer) > 60 Est GFR (Non-Af Amer) > 60 Glucose 91 Calcium 9.3 Impressions: Chest/Abdomen CTA 08/20/16 11:17 IMPRESSION: NORMAL CTA OF THE CHEST. NO PULMONARY EMBOLI. Chest X-Ray 08/22/16 06:00 IMPRESSION: COPD. NO ACUTE RADIOGRAPHIC FINDING IN THE CHEST. Assessment & Plan - Diagnosis (1) Acute respiratory failure Qualifiers: Respiratory failure complication: hypoxia and hypercapnia Qualified Code(s): J96.01 - Acute respiratory failure with hypoxia Is this a current diagnosis for this admission?: YesPlan: There is a 2 acute COPD exacerbation. Patient is still having some wheezing but overall has shown improvement. We will continue with steroids nebulizers and BiPAP (2) COPD with exacerbation Is this a current diagnosis for this admission?: YesPlan: Continue with steroids, nebulizers, and BiPAP. (3) CHF (congestive heart failure) Qualifiers: Congestive heart failure type: diastolic Congestive heart failure chronicity: chronic Qualified Code(s): I50.32 - Chronic diastolic ( congestive) heart failure Is this a current diagnosis for this admission?: YesPlan: Chronic diastolic congestive heart failure. He appears to be euvolemic currently. (4) Elevated hematocrit Is this a current diagnosis for this admission?: YesPlan: Secondary to his underlying lung disease. (5) PAF (paroxysmal atrial fibrillation) Is this a current diagnosis for this admission?: YesPlan: Is in a regular rhythm today (6) Pulmonary hypertension Is this a current diagnosis for this admission?: Yes - Time Time Spent with patient: 25-34 minutes - Inpatient Certification Medical Necessity: Need Close Monitoring Due to Risk of Patient Decompensation
[2016-08-26] MEDS: IPRATROPIUM BROMIDE 0.02% NEB 0.5 MG/2.5 ML AMPUL NEB SCH ×6 (03:39→23:18)
[2016-08-26] MEDS: LEVALBUTEROL HCL NEB 1.25 MG/3 ML AMPUL NEB SCH ×6 (03:39→23:19)
[2016-08-26 04:47] LABS: ABSOLUTE EOSINOPHILS # (AUTO) 0.1 10^3/uL (0.0-0.6); ABSOLUTE LYMPHOCYTES (AUTO) 1.2 10^3/uL (0.5-4.7); ABSOLUTE MONOCYTES (AUTO) 0.8 10^3/uL (0.1-1.4); ABSOLUTE NEUT (AUTO) 3.4 10^3/uL (1.7-8.2); BASOPHILS % (AUTO) 0.1 % (0-2); EOSINOPHILS % (AUTO) 1.1 % (0-6); HEMATOCRIT 55.4 % (37.9-51.0); HEMOGLOBIN 18.4 g/dL (13.5-17.0); HGB HCT DIFFERENCE -0.2; LYMPHOCYTES % (AUTO) 21.7 % (13-45); MEAN CORPUSCULAR HEMOGLOBIN 33.4 pg (27.0-33.4); MEAN CORPUSCULAR HGB CONC 33.2 g/dL (32.0-36.0); MEAN CORPUSCULAR VOLUME 101 fl (80-97); MONOCYTES % (AUTO) 14.2 % (3-13); RED BLOOD COUNT 5.51 10^6/uL (4.35-5.55); RED CELL DISTRIBUTION WIDTH 14.2 % (11.5-14.0); SEGMENTED NEUTROPHILS % (AUTO) 62.9 % (42-78); WHITE BLOOD COUNT 5.3 10^3/uL (4.0-10.5)
[2016-08-26 05:03] LABS: ANION GAP 10 (5-19); BLOOD UREA NITROGEN 13 mg/dL (7-20); CALCIUM 9.4 mg/dL (8.4-10.2); CARBON DIOXIDE 38 mmol/L (22-30); CHLORIDE 91 mmol/L (98-107); CREATININE RESULT 0.62 mg/dL (0.52-1.25); GLUCOSE 93 mg/dL (75-110); POTASSIUM 3.3 mmol/L (3.6-5.0); SODIUM 138.9 mmol/L (137-145)
[2016-08-26] MEDS: LANSOPRAZOLE 30 MG TAB.RAP.DR PO SCH (05:51)
[2016-08-26] MEDS: DOCUSATE SODIUM 100 MG CAPSULE PO SCH ×2 (09:49→17:41)
[2016-08-26] MEDS: POTASSIUM CHLORIDE 10 MEQ TABLET.SA PO SCH ×2 (09:50→21:14)
[2016-08-26] MEDS: PREDNISONE 20 MG TABLET PO SCH (09:50)
--- NOTE | 2016-08-26 09:58 | PDOC PROGRESS REPORT ---
Subjective Progress Note for:: 08/26/16 Subjective:: Complains of a nonproductive cough. Physical Exam Vital Signs: Temp Pulse Resp BP Pulse Ox 98.0 F 84 18 131/94 H 90 L 08/26/16 03:41 08/26/16 07:56 08/26/16 07:56 08/26/16 03:41 08/26/16 07:56 Intake & Output 08/25/16 08/26/16 08/27/16 06:59 06:59 06:59 Intake Total 1094 1516 Output Total 4400 1125 Balance -3306 391 Weight 73.8 kg 74 kg General appearance: PRESENT: no acute distress Eye exam: PRESENT: conjunctiva pink. ABSENT: scleral icterus Mouth exam: PRESENT: moist, tongue midline Neck exam: ABSENT: carotid bruit, JVD, lymphadenopathy, thyromegaly Respiratory exam: PRESENT: wheezes - Worse on the left. ABSENT: rales, rhonchi Cardiovascular exam: PRESENT: RRR. ABSENT: diastolic murmur, rubs, systolic murmur GI/Abdominal exam: PRESENT: normal bowel sounds, soft. ABSENT: distended, guarding, mass, organolmegaly, rebound, tenderness Extremities exam: ABSENT: calf tenderness, clubbing, pedal edema Neurological exam: PRESENT: alert, awake, oriented to person, oriented to place , oriented to time, oriented to situation, CN II-XII grossly intact. ABSENT: motor sensory deficit Psychiatric exam: PRESENT: appropriate affect Skin exam: PRESENT: dry, intact, warm. ABSENT: cyanosis, rash Results Laboratory Results: 08/26/16 03:37 08/26/16 03:37 08/26/16 08/26/16 03:37 03:37 WBC 5.3 RBC 5.51 Hgb 18.4 H Hct 55.4 H MCV 101 H MCH 33.4 MCHC 33.2 RDW 14.2 H Plt Count 110 L Seg Neutrophils % 62.9 Lymphocytes % 21.7 Monocytes % 14.2 H Eosinophils % 1.1 Basophils % 0.1 Absolute Neutrophils 3.4 Absolute Lymphocytes 1.2 Absolute Monocytes 0.8 Absolute Eosinophils 0.1 Absolute Basophils 0.0 Sodium 138.9 Potassium 3.3 L Chloride 91 L Carbon Dioxide 38 H Anion Gap 10 BUN 13 Creatinine 0.62 Est GFR ( Amer) > 60 Est GFR (Non-Af Amer) > 60 Glucose 93 Calcium 9.4 Impressions: Chest/Abdomen CTA 08/20/16 11:17 IMPRESSION: NORMAL CTA OF THE CHEST. NO PULMONARY EMBOLI. Chest X-Ray 08/22/16 06:00 IMPRESSION: COPD. NO ACUTE RADIOGRAPHIC FINDING IN THE CHEST. Assessment & Plan - Diagnosis (1) Acute respiratory failure Qualifiers: Respiratory failure complication: hypoxia and hypercapnia Qualified Code(s): J96.01 - Acute respiratory failure with hypoxia Is this a current diagnosis for this admission?: YesPlan: Secondary to acute COPD exacerbation. Patient continues to have some wheezing but overall has shown improvement. We will continue with steroids nebulizers and BiPAP (2) COPD with exacerbation Is this a current diagnosis for this admission?: YesPlan: Continue with steroids, nebulizers, and BiPAP. (3) CHF (congestive heart failure) Qualifiers: Congestive heart failure type: diastolic Congestive heart failure chronicity: chronic Qualified Code(s): I50.32 - Chronic diastolic ( congestive) heart failure Is this a current diagnosis for this admission?: YesPlan: Chronic diastolic congestive heart failure. He appears to be euvolemic currently. (4) Elevated hematocrit Is this a current diagnosis for this admission?: YesPlan: Secondary to his underlying lung disease. (5) PAF (paroxysmal atrial fibrillation) Is this a current diagnosis for this admission?: YesPlan: Is in a regular rhythm today (6) Pulmonary hypertension Is this a current diagnosis for this admission?: Yes (7) Do not resuscitate Is this a current diagnosis for this admission?: Yes - Time Time Spent with patient: 25-34 minutes - Inpatient Certification Medical Necessity: Need Close Monitoring Due to Risk of Patient Decompensation - Plan Summary Plan Summary: If he continues to improve we can hopefully discharge home tomorrow.
[2016-08-26] MEDS: LEVOFLOXACIN 750 MG TABLET PO SCH (10:00)
[2016-08-26] MEDS: FONDAPARINUX SODIUM INJ 2.5 MG/0.5 ML DISP.SYRIN SUBCUT SCH (10:05)
[2016-08-26] MEDS: FLUTICASONE/SALMETEROL DISKUS 500-50 MCG/DOSE IH SCH ×2 (10:27→21:12)
[2016-08-26] MEDS: ACETAMINOPHEN 325 MG TABLET PO PRN (17:41)
[2016-08-27] MEDS: IPRATROPIUM BROMIDE 0.02% NEB 0.5 MG/2.5 ML AMPUL NEB SCH ×3 (03:57→11:26)
[2016-08-27] MEDS: LEVALBUTEROL HCL NEB 1.25 MG/3 ML AMPUL NEB SCH ×3 (03:57→11:26)
[2016-08-27 04:50] LABS: ABSOLUTE EOSINOPHILS # (AUTO) 0.1 10^3/uL (0.0-0.6); ABSOLUTE MONOCYTES (AUTO) 0.7 10^3/uL (0.1-1.4); ABSOLUTE NEUT (AUTO) 3.7 10^3/uL (1.7-8.2); BASOPHILS % (AUTO) 0.2 % (0-2); EOSINOPHILS % (AUTO) 0.9 % (0-6); HEMATOCRIT 56.8 % (37.9-51.0); HEMOGLOBIN 18.6 g/dL (13.5-17.0); LYMPHOCYTES % (AUTO) 18.7 % (13-45); MEAN CORPUSCULAR HEMOGLOBIN 32.9 pg (27.0-33.4); MEAN CORPUSCULAR HGB CONC 32.8 g/dL (32.0-36.0); MEAN CORPUSCULAR VOLUME 100 fl (80-97); MONOCYTES % (AUTO) 13.4 % (3-13); RED BLOOD COUNT 5.67 10^6/uL (4.35-5.55); RED CELL DISTRIBUTION WIDTH 14.2 % (11.5-14.0); SEGMENTED NEUTROPHILS % (AUTO) 66.8 % (42-78); WHITE BLOOD COUNT 5.6 10^3/uL (4.0-10.5)
[2016-08-27 04:54] LABS: ANION GAP 10 (5-19); BLOOD UREA NITROGEN 19 mg/dL (7-20); CALCIUM 9.5 mg/dL (8.4-10.2); CARBON DIOXIDE 33 mmol/L (22-30); CHLORIDE 95 mmol/L (98-107); CREATININE RESULT 0.59 mg/dL (0.52-1.25); GLUCOSE 96 mg/dL (75-110); SODIUM 138.1 mmol/L (137-145)
[2016-08-27] MEDS: LANSOPRAZOLE 30 MG TAB.RAP.DR PO SCH (05:10)
[2016-08-27 08:53] VITALS: BP 110/74
[2016-08-27] MEDS: DOCUSATE SODIUM 100 MG CAPSULE PO SCH (09:29)
[2016-08-27] MEDS: LEVOFLOXACIN 750 MG TABLET PO SCH (09:29)
[2016-08-27] MEDS: POTASSIUM CHLORIDE 10 MEQ TABLET.SA PO SCH (09:30)
[2016-08-27] MEDS: FLUTICASONE/SALMETEROL DISKUS 500-50 MCG/DOSE IH SCH (09:30)
[2016-08-27] MEDS: PREDNISONE 20 MG TABLET PO SCH (09:30)
[2016-08-27] MEDS: FONDAPARINUX SODIUM INJ 2.5 MG/0.5 ML DISP.SYRIN SUBCUT SCH (09:30)
--- NOTE | 2016-08-27 13:48 | PDOC DISCHARGE SUMMARY ---
General - Admit/Disc Date/PCP Admission Date/Primary Care Provider: 08/20/16 16:59 Discharge Date: 08/27/16 - Discharge Diagnosis (1) Acute respiratory failure Is this a current diagnosis for this admission?: YesSummary: Secondary to acute COPD exacerbation (2) COPD with exacerbation Is this a current diagnosis for this admission?: Yes (3) CHF (congestive heart failure) Is this a current diagnosis for this admission?: YesSummary: Chronic diastolic congestive heart failure (4) Elevated hematocrit Is this a current diagnosis for this admission?: Yes (5) PAF (paroxysmal atrial fibrillation) Is this a current diagnosis for this admission?: Yes (6) Pulmonary hypertension Is this a current diagnosis for this admission?: Yes (7) Do not resuscitate Is this a current diagnosis for this admission?: Yes - Additional Information Resuscitation Status: Do Not Resuscitate Discharge Diet: Cardiac Discharge Activity: Activity As Tolerated Home Medications: Fluticasone/Salmeterol [Advair 500-50 Diskus 14 Dose/Diskus] 1 inh IH Q12 #1 inhaler 08/27/16 Ipratropium/Albuterol Sulfate [Duoneb 3 ml Ampul] 3 ml NEB RTQID #120 vial.neb 08/27/16 Potassium Chloride [Klor-Con 10 Meq Tablet.sa] 20 meq PO Q12 #60 tablet.sa 08/27 Prednisone [Deltasone 20 mg Tablet] 10 mg PO DAILY #39 tablet 08/27/16 History of Present Illness History of Present Illness: JULIA UNDERWOOD SR is a 65 year old male history of COPD on chronic oxygen at 2 L who presented with a two-week history of cough and congestion. Patient began to have worsening of his breathing and developed low-grade fever as well as began to have wheezing consistent with an acute COPD exacerbation along with bronchitis. Patient was initially requiring BiPAP was admitted for further evaluation. Hospital Course Hospital Course: 65-year-old gentleman with chronic obstructive pulmonary disease on chronic home oxygen who presented with worsening shortness of breath consistent with acute COPD exacerbation and acute bronchitis. Patient was treated with IV steroids, nebulizers and required a BiPAP initially. His respiratory status improved and he was no longer requiring BiPAP. The patient had his oxygen saturations checked on the day of discharge and they were 86% on room air. He is being sent home on 3 L per nasal cannula along with a portable oxygen. Patient when admitted also was treated for acute bronchitis with IV antibiotics. Patient's cultures were negative. The patient's other medical problems all were stable during his hospitalization. Physical Exam Vital Signs: Temp Pulse Resp BP Pulse Ox 98.3 F 97 18 110/74 94 08/27/16 08:48 08/27/16 11:26 08/27/16 11:26 08/27/16 08:48 08/27/16 11:26 Intake & Output 08/26/16 08/27/16 08/28/16 06:59 06:59 06:59 Intake Total 1516 1843 Output Total 1125 775 Balance 391 1068 Weight 74 kg 74 kg General appearance: PRESENT: no acute distress Eye exam: PRESENT: conjunctiva pink. ABSENT: scleral icterus Mouth exam: PRESENT: moist, tongue midline Neck exam: ABSENT: JVD Respiratory exam: PRESENT: wheezes - Scattered wheezes worse on the left.. ABSENT: rales, rhonchi Cardiovascular exam: PRESENT: RRR. ABSENT: diastolic murmur, rubs, systolic murmur Vascular exam: PRESENT: normal capillary refill GI/Abdominal exam: PRESENT: normal bowel sounds, soft. ABSENT: distended, guarding, mass, organolmegaly, rebound, tenderness Extremities exam: ABSENT: calf tenderness, clubbing, pedal edema Neurological exam: PRESENT: alert, awake, oriented to person, oriented to place , oriented to time, oriented to situation, CN II-XII grossly intact. ABSENT: motor sensory deficit Psychiatric exam: PRESENT: appropriate affect Skin exam: PRESENT: dry, intact, warm. ABSENT: cyanosis, rash Results Laboratory Results: 08/27/16 03:56 08/27/16 03:56 08/27/16 08/27/16 03:56 03:56 WBC 5.6 RBC 5.67 H Hgb 18.6 H Hct 56.8 H MCV 100 H MCH 32.9 MCHC 32.8 RDW 14.2 H Plt Count 121 L Seg Neutrophils % 66.8 Lymphocytes % 18.7 Monocytes % 13.4 H Eosinophils % 0.9 Basophils % 0.2 Absolute Neutrophils 3.7 Absolute Lymphocytes 1.0 Absolute Monocytes 0.7 Absolute Eosinophils 0.1 Absolute Basophils 0.0 Sodium 138.1 Potassium 4.0 Chloride 95 L Carbon Dioxide 33 H Anion Gap 10 BUN 19 Creatinine 0.59 Est GFR ( Amer) > 60 Est GFR (Non-Af Amer) > 60 Glucose 96 Calcium 9.5 Impressions: Chest/Abdomen CTA 08/20/16 11:17 IMPRESSION: NORMAL CTA OF THE CHEST. NO PULMONARY EMBOLI. Chest X-Ray 08/22/16 06:00 IMPRESSION: COPD. NO ACUTE RADIOGRAPHIC FINDING IN THE CHEST. Qualifiers PATEINT BEING DISCHARGED WITH ANY OF THE FOLLOWING DIAGNOSIS?: No Plan Discharge Plan: Is discharged home with home health for oxygen at 3 L per nasal cannula. Will follow up with primary care doctor in 1-2 weeks. Time Spent: Greater than 30 Minutes
== END 2016-08-27 12:00 | disposition home or self-care (01) | DRG 190 ==
LOC: ER 10:01 → EH 14:48 → UNDOADMIN 14:48 → EH 16:59 → 3N 08-21 15:56
DX: J44.1 Chronic obstructive pulmonary disease with (acute) exacerbation (principal); J96.21 Acute and chronic respiratory failure with hypoxia; J96.22 Acute and chronic respiratory failure with hypercapnia; I50.32 Chronic diastolic (congestive) heart failure; Z66 Do not resuscitate; I27.2 Other secondary pulmonary hypertension; D69.6 Thrombocytopenia, unspecified; F10.10 Alcohol abuse, uncomplicated; I48.0 Paroxysmal atrial fibrillation; F17.210 Nicotine dependence, cigarettes, uncomplicated; Y90.9 Presence of alcohol in blood, level not specified; Z99.81 Dependence on supplemental oxygen
CPT/HCPCS: 36415; 71010; 71275; 80048; 80076; 82550; 82803; 83605; 83690; 83880; 84484; 85025; 85027; 87040; 87070; 87205; 93005; 93010; 94640; 94660; 96365; 96368; 99291; G8978-GP; G8979-GP; J1652; J1956; J2930; J3475; J3490; J7030; J7512; J7620

== ENCOUNTER 2016-09-05 15:02 | Emergency (ER) | payer MEDICARE ==
[2016-09-05] MEDS ORDERED: ASPIRIN 81 MG TABLET, CHEWABLE PO ONE (15:20)
[2016-09-05] MEDS ORDERED: NORMAL SALINE 1000 ML 1,000 ML IV PRN ×3 (15:42→16:43)
[2016-09-05] MEDS: NORMAL SALINE 1000 ML 1,000 ML IV PRN ×2 (15:45→18:40)
[2016-09-05] MEDS ORDERED: ALBUTEROL SULFATE 0.083% NEB 2.5 MG/3 ML AMPUL NEB ONE (15:45)
[2016-09-05] MEDS ORDERED: IPRATROPIUM/ALBUTEROL 0.5-2.5 MG/3 ML AMPUL NEB ONE (15:45)
--- NOTE | 2016-09-05 16:02 | RADIOLOGY REPORT (SQ) ---
EXAM DESCRIPTION: CHEST SINGLE VIEW COMPLETED DATE/TIME: 09/05/2016 3:39 pm REASON FOR STUDY: bed 6 cp COMPARISON: CT angio chest 08/20/2016 Chest x-ray 08/22/2016, 08/20/2016 EXAM PARAMETERS: NUMBER OF VIEWS: One view. TECHNIQUE: Single frontal radiographic view of the chest acquired. RADIATION DOSE: NA LIMITATIONS: None. FINDINGS: LUNGS AND PLEURA: Stable scarring left lung apex. Upper lobes are hyperlucent from obstru ctive disease. No focal infiltrates, pleural effusions or pneumothorax. MEDIASTINUM AND HILAR STRUCTURES: No masses. Contour normal. HEART AND VASCULAR STRUCTURES: Heart normal in size. Normal vasculature. BONES: No acute findings. HARDWARE: None in the chest. OTHER: No other significant finding. IMPRESSION: NO ACUTE RADIOGRAPHIC FINDING IN THE CHEST. TECHNICAL DOCUMENTATION: JOB ID: [id number]
[2016-09-05 16:04] LABS: VENOUS BLOOD BASE EXCESS 2.4 mmol/L; VENOUS BLOOD HCO3 29.6 mmol/L (20-32); VENOUS BLOOD PCO2 55.6 mmHg (35-63); VENOUS BLOOD PH 7.34 (7.30-7.42)
[2016-09-05 16:10] LABS: HEMATOCRIT 48.2 % (37.9-51.0); HEMOGLOBIN 15.7 g/dL (13.5-17.0); HGB HCT DIFFERENCE -1.1; MEAN CORPUSCULAR HEMOGLOBIN 32.4 pg (27.0-33.4); MEAN CORPUSCULAR HGB CONC 32.6 g/dL (32.0-36.0); MEAN CORPUSCULAR VOLUME 100 fl (80-97); RED BLOOD COUNT 4.84 10^6/uL (4.35-5.55); RED CELL DISTRIBUTION WIDTH 14.1 % (11.5-14.0)
[2016-09-05 16:20] LABS: ALANINE AMINOTRANSFERASE 68 U/L (21-72); ALKALINE PHOSPHATASE 35 U/L (38-126); ANION GAP 13 (5-19); ASPARTATE AMINO TRANSFERASE 39 U/L (17-59); BILIRUBIN,DIRECT 0.3 mg/dL (0.0-0.4); BILIRUBIN,TOTAL 1.3 mg/dL (0.2-1.3); BLOOD UREA NITROGEN 20 mg/dL (7-20); CARBON DIOXIDE 31 mmol/L (22-30); CHLORIDE 91 mmol/L (98-107); CREATININE RESULT 1.74 mg/dL (0.52-1.25); GLUCOSE 87 mg/dL (75-110); POTASSIUM 3.4 mmol/L (3.6-5.0); SODIUM 135.1 mmol/L (137-145); TOTAL PROTEIN 5.3 g/dL (6.3-8.2)
[2016-09-05 16:23] LABS: CREATINE KINASE < 20 U/L (55-170)
[2016-09-05 16:32] LABS: BAND NEUTROPHILS % (MANUAL) 10 % (3-5); BASOPHILS % (MANUAL) 0 % (0-2); EOSINOPHILS % (MANUAL) 0 % (0-6); LYMPHOCYTES % (MANUAL) 8 % (13-45); TOTAL CELLS COUNTED 100
[2016-09-05 16:34] LABS: CREATINE KINASE MB 0.34 ng/mL (<4.55)
[2016-09-05 16:47] LABS: TROPONIN I 0.037 ng/mL
[2016-09-05] MEDS ORDERED: VANCOMYCIN HCL INJ 1000 MG VIAL IV ONE (17:02)
[2016-09-05] MEDS ORDERED: DEXTROSE 5%-WATER 250 ML with NOREPINEPHRINE BITARTRATE 4 MG IV PRN ×2 (17:03)
[2016-09-05] MEDS ORDERED: NOREPINEPHRINE BITARTRATE INJ/PF 4 MG/4 ML SDV IV ONE (17:27)
--- NOTE | 2016-09-05 18:01 | RADIOLOGY REPORT (SQ) ---
EXAM DESCRIPTION: HAND LEFT 3 VIEWS COMPLETED DATE/TIME: 09/05/2016 5:43 pm REASON FOR STUDY: swelling COMPARISON: None. EXAM PARAMETERS: NUMBER OF VIEWS: Three views. TECHNIQUE: AP, lateral and oblique radiographic images acquired of the left hand. LIMITATIONS: None. FINDINGS: MINERALIZATION: Normal. BONES: No acute fracture or dislocation. No worrisome bone lesions. Background of diffuse degenerat frances changes most significantly involving the interphalangeal joints and 1st carpal metacarpal joint. JOINTS: No effusions. SOFT TISSUES: Dorsal soft tissue swelling. Incidental note is made of probable surgical clips involv ing the distal forearm, adjacent to the radius. OTHER: No other significant finding. IMPRESSION: Dorsal soft tissue swelling without underlying osseous injury or abnormality. TECHNICAL DOCUMENTATION: JOB ID: [id number] [employer]- All Rights Reserved
[2016-09-05] MEDS ORDERED: METRONIDAZOLE RTU 500 MG/NS 100 ML IV ONE (18:02)
--- NOTE | 2016-09-05 18:13 | RADIOLOGY REPORT (SQ) ---
EXAM DESCRIPTION: CT ABD/PELVIS WITH IV ONLY COMPLETED DATE/TIME: 09/05/2016 5:56 pm REASON FOR STUDY: back pain COMPARISON: 11/12/2014 TECHNIQUE: CT scan of the abdomen and pelvis performed using helical scanning technique with dynamic intravenous contrast injection. No oral contrast. Images reviewed with lung, soft tissue, and bone windows. Reconstructed coronal and sagittal MPR images reviewed. Delayed images for evaluation of the urinary system also acquired. All images stored on PACS. All CT scanners at this facility use dose modulation, iterative reconstruction, and/or weight based d osing when appropriate to reduce radiation dose to as low as reasonably achievable (ALARA). [facility]: Dose Right [facility]: CareDose [facility]: Dose Right [facility]: Teradose 4D [facility]: Fliptop CONTRAST TYPE AND DOSE: 100mL Isovue 300- low osmolar. RENAL FUNCTION: BUN 20; creatinine 1.74 RADIATION DOSE: 19.59mGy. LIMITATIONS: None. FINDINGS: LOWER CHEST: Bibasilar atelectasis. LIVER: Normal size. Diffusely decreased attenuation consistent with fatty infiltration, noting focal sparing about the gallbladder fossa. No intrahepatic or extrahepatic biliary dilatation. SPLEEN: Normal size. No focal lesions. PANCREAS: No masses. No significant calcifications. No adjacent inflammation or peripancreatic fluid collections. Pancreatic duct not dilated. GALLBLADDER: No identified stones by CT criteria. No inflammatory changes to suggest cholecystitis. ADRENAL GLANDS: No significant masses or asymmetry. RIGHT KIDNEY AND URETER: Symmetric perinephric fat stranding. No solid masses. No significant calc ifications. No hydronephrosis or hydroureter. LEFT KIDNEY AND URETER: Symmetric perinephric fat stranding. No solid masses. No significant calci fications. No hydronephrosis or hydroureter. AORTA AND VESSELS: No aneurysm. No dissection. Renal arteries, SMA, celiac without stenosis. RETROPERITONEUM: No retroperitoneal adenopathy, hemorrhage or masses. BOWEL AND PERITONEAL CAVITY: No masses or inflammatory changes. No free fluid or peritoneal masses. APPENDIX: Not visualized. PELVIS: The bladder wall appears symmetrically thickened; this is a nonspecific finding. No free flu id is seen within the pelvis ABDOMINAL WALL: Fat and fluid containing right inguinal hernia. BONES: No significant or acute findings. OTHER: No other significant finding. IMPRESSION: Symmetric perinephric fat stranding and symmetrically thickened bladder wall are nonspec ific findings. However, given patient's reported back pain, recommend correlation for possible cysti tis and/or pyelonephritis. Otherwise unremarkable examination. TECHNICAL DOCUMENTATION: JOB ID: [id number] Quality ID # [id number]: Final reports with documentation of one or more dose reduction techniques (e.g., Au tomated exposure control, adjustment of the mA and/or kV according to patient size, use of iterative reconstruction technique) 2010 [email or web address]- All Rights Reserved
[2016-09-05] MEDS ORDERED: LEVOFLOXACIN 750 MG/D5W RTU 150 ML IV ONE (18:14)
[2016-09-05] MEDS ORDERED: FENTANYL CITRATE INJ/PF 100 MCG/2 ML AMPUL IV ONE ×3 (18:20→20:27)
--- NOTE | 2016-09-05 18:28 | ER Document Report ---
ED General - General Chief Complaint: Chest Pain Stated Complaint: CHEST PAIN Time Seen by Provider: 09/05/16 15:33 Mode of Arrival: Ambulatory Information source: Patient TRAVEL OUTSIDE OF THE [place] IN LAST 30 DAYS: No - HPI Patient complains to provider of: Hypotension, shortness of breath Onset: Other - 2 days Onset/Duration: Gradual Quality of pain: Achy Severity: Moderate Pain Level: 4 Associated symptoms: Body/muscle aches, Nonproductive cough, Shortness of breath , Weakness Similar symptoms previously: No Recently seen / treated by doctor: Yes Notes: Patient is a 65-year-old male with a history of COPD who quit smoking 2 weeks ago, who presents to the emergency room complaining of generalized weakness with difficulty breathing and swelling and redness to his left arm, patient is noted to be tachycardic, hypotensive and hypoxic in triage area, he reports that on of this week he was fishing for crab when the crab bit him on the left hand causing an open wound, he was then in the water fishing shortly thereafter, over the past 2-3 days he has noted increased swelling and redness to his left arm with increased pain, he is also complaining of low back pain and shortness of breath - Related Data Allergies/Adverse Reactions: No Known Allergies Allergy (Verified 06/11/16 14:05) Past Medical History - General Information source: Patient - Social History Smoking Status: Former Smoker Chew tobacco use (# tins/day): No Frequency of alcohol use: Social Drug Abuse: None Family History: Hypertension - Past Medical History Cardiac Medical History: Reports: Hx Congestive Heart Failure - diastolic dysfx. Pulmonary Medical History: Reports: Hx COPD Neurological Medical History: Denies: Hx Seizures Renal/ Medical History: Denies: Hx Peritoneal Dialysis Psychiatric Medical History: Denies: Hx Depression Past Surgical History: Reports: Hx Orthopedic Surgery - Immunizations Hx Diphtheria, Pertussis, Tetanus Vaccination: Yes Review of Systems - Review of Systems Constitutional: Malaise, Weakness EENT: No symptoms reported Cardiovascular: Chest pain Respiratory: Short of breath Gastrointestinal: No symptoms reported Genitourinary: No symptoms reported Male Genitourinary: No symptoms reported Musculoskeletal: See HPI Skin: See HPI Hematologic/Lymphatic: No symptoms reported Neurological/Psychological: No symptoms reported -: Yes All other systems reviewed and negative Physical Exam - Vital signs Vitals: Pulse Ox 95 09/05/16 15:20 Interpretation: Hypotensive, Tachycardic, Hypoxic - General General appearance: Alert In distress: Moderate - HEENT Head: Normocephalic, Atraumatic Eyes: Normal Conjunctiva: Injected Extraocular movements intact: Yes Eyelashes: Normal Pupils: PERRL Pharynx: Normal Neck: Normal - Respiratory Respiratory status: Labored Chest status: Nontender Breath sounds: Nonproductive cough, Wheezing - Cardiovascular Rhythm: Regular, Tachycardia - Abdominal Inspection: Normal Distension: No distension Bowel sounds: Normal Tenderness: Nontender Organomegaly: No organomegaly - Back Back: Tender - Lumbar paraspinal - Extremities General lower extremity: Normal inspection Hand: Other - Left hand with approximate 2 cm scabbed laceration, thenar eminence, with erythema and swelling from the fingertips to just distal of the elbow, with tenderness as well as edema to radial pulses, brisk capillary refill , distal sensation is intact - Neurological Neuro grossly intact: Yes Cognition: Normal Orientation: AAOx4 Artemio Coma Scale Eye Opening: Spontaneous Artemio Coma Scale Verbal: Oriented Artemio Coma Scale Motor: Obeys Commands Artemio Coma Scale Total: 15 - Skin Skin Color: Normal Course - Re-evaluation Re-evalutation: 09/05/16 19:16 Patient with signs and symptoms consistent with septic shock, likely from vibrio species from recent Marine infection, as patient was bit by a crab on the hand on night and was fishing and Wednesday, patient requiring large amount of IV fluids, after 3-4 L he continues to be hypotensive , patient is now receiving Levophed as well as Saul-Synephrine, IV antibiotics and IV fluids, there are no ICU beds at this facility, therefore patient was discussed with the ICU attending [facility], Dr. Schroeder, graciously accepted patient for transfer, we are awaiting a bed assignment and transportation arrangements at this point in time, patient continued to be alert and oriented, he is maintaining his airway, he remains hypotensive and tachycardic 09/05/16 20:27 Patient continues to rest comfortably, he is awake and alert, answering questions appropriately maintaining his airway, he remains slightly tachycardic with a heart rate around 115, his current blood pressure is 86/61, and is to complain of pain in his back, additional IV fentanyl has been ordered, awaiting [facility] support to arrive to take patient to [facility] - Vital Signs Vital signs: Temp Pulse Resp BP Pulse Ox 100.6 F H 115 H 19 86/61 L 94 09/05/16 20:02 09/05/16 16:00 09/05/16 20:27 09/05/16 20:27 09/05/16 20:27 - Laboratory Result Diagrams: 09/05/16 15:40 09/05/16 15:40 Laboratory results interpreted by me: 09/05/16 09/05/16 09/05/16 15:40 15:40 15:40 WBC 34.0 H* MCV 100 H RDW 14.1 H Band Neutrophils % 10 H Lymphocytes % (Manual) 8 L Metamyelocytes % 1 H Abs Neuts (Manual) 29.6 H Abs Monocytes (Manual) 1.7 H Sodium 135.1 L Potassium 3.4 L Chloride 91 L Carbon Dioxide 31 H Creatinine 1.74 H Est GFR ( Amer) 48 L Est GFR (Non-Af Amer) 40 L Lactic Acid 5.6 H Alkaline Phosphatase 35 L Creatine Kinase < 20 L Total Protein 5.3 L Albumin 3.0 L 09/05/16 20:00 WBC MCV RDW Band Neutrophils % Lymphocytes % (Manual) Metamyelocytes % Abs Neuts (Manual) Abs Monocytes (Manual) Sodium Potassium Chloride Carbon Dioxide Creatinine Est GFR ( Amer) Est GFR (Non-Af Amer) Lactic Acid 4.8 H Alkaline Phosphatase Creatine Kinase Total Protein Albumin - Diagnostic Test Radiology reviewed: Image reviewed, Reports reviewed - EKG Interpretation by Me EKG shows normal: Sinus rhythm Rate: Tachycardia When compared to previous EKG there are: No significant change Critical Care Note - Critical Care Note Total time excluding time spent on procedures (mins): 180 Comments: Patient arrived hypoxic, hypotensive, tachycardic, with septic shock from Marine related infection to left hand, requiring IV fluids, antibiotics, pressors, and air transport to tertiary [facility] for evaluation and treatment Discharge - Discharge Clinical Impression: Septic shock, Infection of left hand Condition: Critical Disposition: [facility]
[2016-09-05] MEDS ORDERED: DEXTROSE 5%-WATER 250 ML with PHENYLEPHRINE HCL 40 MG IV PRN ×2 (18:54)
[2016-09-05] MEDS ORDERED: PHENYLEPHRINE HCL INJ/PF 10 MG/1 ML SDV ONE (19:01)
[2016-09-05] MEDS ORDERED: ACETAMINOPHEN 325 MG TABLET PO ONE (20:05)
[2016-09-05 21:18] VITALS: BP 93/79
--- NOTE | 2016-09-06 09:23 | EKG REPORT ---
SEVERITY:- ABNORMAL ECG - SINUS TACHYCARDIA MULTIFORM VENTRICULAR PREMATURE COMPLEXES NORBERTO, CONSIDER BIATRIAL ABNORMALITIES LEFT ANTERIOR FASCICULAR BLOCK NONSPECIFIC T ABNORMALITIES, ANT-LAT LEADS : Confirmed by: Jason Martinez 06-Sep-2016 09:22:19
== END 2016-09-05 21:25 | disposition short-term general hospital (02) ==
LOC: ER 15:02
DX: A41.89 Other specified sepsis (principal); R65.21 Severe sepsis with septic shock; R07.9 Chest pain, unspecified; S61.412A Laceration without foreign body of left hand, initial encounter; W56.81XA Bitten by other nonvenomous marine animals, initial encounter; I95.9 Hypotension, unspecified; R05 Cough; M79.1 Myalgia; R06.02 Shortness of breath; R53.1 Weakness; R53.81 Other malaise; R00.0 Tachycardia, unspecified; I50.9 Heart failure, unspecified; J44.9 Chronic obstructive pulmonary disease, unspecified; I47.1 Supraventricular tachycardia; Z87.891 Personal history of nicotine dependence
CPT/HCPCS: 93005; 96376; 94640 ×2; 99291; 99292; 96361; 96375; 96365; 96366; 96368; 36415; 87040; 87070; 87205; 82553; 82550; 85025; 87075; 87077; 80053; 84484; 87186; 82803; 83605; 71010; 73130; 74177; 93010; A9270 ×4; J3010; J3490; J2370; J7060; J7030; J3370; J1956; J7620

== ENCOUNTER 2017-11-06 01:29 | Emergency (ER) | payer MEDICARE ==
[2017-11-06] MEDS ORDERED: LIDOCAINE 1% INJ-PF (10 MG/ML) 30 ML SDV INJ ONE (01:48)
[2017-11-06] MEDS ORDERED: IPRATROPIUM/ALBUTEROL 0.5-2.5 MG/3 ML AMPUL NEB ONE (01:49)
--- NOTE | 2017-11-06 02:24 | RADIOLOGY REPORT (SQ) ---
EXAM DESCRIPTION: XR HAND 3 OR MORE VIEWS COMPLETED DATE/TME: 11/06/2017 01:49 CLINICAL HISTORY: 66 years, Male, trauma COMPARISON: None. NUMBER OF VIEWS: 3 LIMITATIONS: None. FINDINGS: Moderate swelling of the distal and mid left third finger, moderate bone demineralization, surgical clips at the dorsum of the proximal left hand and distal wrist. Mild osteoarthritis involves interphalangeal joints and first carpometacarpal joint. IMPRESSION: Swelling.
[2017-11-06] MEDS ORDERED: CEPHALEXIN 500 MG CAPSULE PO ONE (04:00)
[2017-11-06] MEDS ORDERED: HYDROCODONE/ACETAMINOPHEN 5-325 MG (6 TAB/ER DISP) PO PRN (04:00)
--- NOTE | 2017-11-06 04:04 | ER Document Report ---
ED General - General Chief Complaint: Finger Injury Stated Complaint: FINGER LACERATION Time Seen by Provider: 11/06/17 01:43 Notes: Patient is a 66-year-old male presents with complaint of partial degloving of the second and third fingers of his left hand. Patient says that his son from the door in his fingers. Patient had a tetanus shot last year. He is not on any blood thinning medications. He has no other complaints otherwise feels well. Patient's oxygenation was low in triage. Patient is mostly wearing oxygen. He has a history of COPD and uses inhalers every day. TRAVEL OUTSIDE OF THE [place] IN LAST 30 DAYS: No - Related Data Allergies/Adverse Reactions: No Known Allergies Allergy (Verified 11/06/17 01:46) Past Medical History - Social History Smoking Status: Current Every Day Smoker Frequency of alcohol use: Heavy Drug Abuse: None Family History: Hypertension Patient has suicidal ideation: No Patient has homicidal ideation: No - Past Medical History Cardiac Medical History: Reports: Hx Congestive Heart Failure - diastolic dysfx. Pulmonary Medical History: Reports: Hx COPD Neurological Medical History: Denies: Hx Seizures Renal/ Medical History: Denies: Hx Peritoneal Dialysis Psychiatric Medical History: Denies: Hx Depression Past Surgical History: Reports: Hx Orthopedic Surgery - Immunizations Hx Diphtheria, Pertussis, Tetanus Vaccination: Yes Review of Systems - Review of Systems Notes: My Normal Review Basic REVIEW OF SYSTEMS: CONSTITUTIONAL : Denies fever, chills, or sweats. Denies recent illness. MUSCULOSKELETAL: Injury to left hand. SKIN: Denies rash or skin lesions. HEMATOLOGIC : Denies easy bruising or bleeding. NEUROLOGICAL: No new sensory or motor loss. ALL OTHER SYSTEMS REVIEWED AND NEGATIVE. Physical Exam - Vital signs Vitals: Temp Pulse Resp BP Pulse Ox 97.6 F 108 H 18 143/83 H 97 11/06/17 01:41 11/06/17 01:41 11/06/17 01:41 11/06/17 01:41 11/06/17 01:41 - Notes Notes: General Appearance: Well nourished, alert, cooperative, no acute distress, mild to moderate obvious discomfort. Vitals: reviewed, See vital signs table. Eyes: PERRL, EOMI, Conjuctiva clear Lungs: Scattered wheezing., No rales, No rhonci, No accessory muscle use, good air exchange bilaterally. Heart: Normal rate, Regular rythm, No murmur, no rub Abdomen: Normal BS, soft, No rigidity, No abdominal tenderness, No guarding, no rebound, no abdominal masses, no organomegaly Extremities: strength 5/5 in all extremities, good pulses in all extremities, patient has partial degloving of both the second and third digits of the left hand. Patient is unable to fully flex these fingers but he says this is chronic and unchanged from his injury to his left arm and hand from last year. He does not have bone exposure at this time. Does have a sub-ungual hematoma over the second left fingernail. Small skin tear over right arm. Skin: warm, dry, appropriate color, no rash Neuro: speech clear, oriented x 3, normal affect, responds appropriately to questions. 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 Patient does not have any new neurologic deficits. Wounds were cleaned and thoroughly and were sutured closed. I trephinated the small subungual hematoma underneath the left second fingernail. Place a Tegaderm dressing over the small skin tear in the patient's right arm. - Vital Signs Vital signs: Temp Pulse Resp BP Pulse Ox 98 F 99 20 140/80 H 98 11/06/17 04:35 11/06/17 04:35 11/06/17 04:35 11/06/17 04:35 11/06/17 04:35 Procedures - Laceration/Wound Repair Left 2nd digit Wound length (cm): 3 Wound's Depth, Shape: Irregular Laceration pre-procedure: Shur-Clens applied Anesthetic type: 1% Lidocaine Volume Anesthetic (mLs): 1 Wound explored: Clean Irrigated w/ Saline (mLs): 40 Wound Repaired With: Sutures Suture Size/Type: 5:0, Ethilon Number of Sutures: 7 Complications: No left 3rd digit Wound length (cm): 3 Wound's Depth, Shape: Irregular Anesthetic type: 1% Lidocaine Volume Anesthetic (mLs): 1 Wound explored: Clean Irrigated w/ Saline (mLs): 40 Wound Repaired With: Sutures Suture Size/Type: 5:0, Ethilon Number of Sutures: 7 Discharge - Discharge Clinical Impression: Laceration Subungual hematoma of finger Qualifiers: Encounter type: initial encounter Qualified Code(s): S60.10XA - Contusion of unspecified finger with damage to nail, initial encounter COPD (chronic obstructive pulmonary disease) Qualifiers: COPD type: unspecified COPD Qualified Code(s): J44.9 - Chronic obstructive pulmonary disease, unspecified Condition: Good Disposition: HOME, SELF-CARE Additional Instructions: LACERATION CARE: Your laceration has been sutured to keep the skin edges aligned during healing. The time of suture removal depends on the nature and location of your cut. Please follow the care instructions the doctor has outlined for you and return for further care, according to the schedule you've been given. Keep the wound and dressing clean. Unless you were told otherwise, you may shower daily, blotting the wound dry with a clean, unused towel. At other times, If the dressing gets wet or blood soaked, remove it and blot the wound dry, then reapply a new dressing. Unless you were instructed otherwise, dressings should be changed at least daily. If any signs of infection occur (swelling, redness, drainage, increasing tenderness, red streaks, tender lumps in the armpit or groin above the laceration, or fever), see the doctor immediately. SOAP CLEANSING: Gently wash the wound daily using a mild soap (like Ivory, Phisoderm, Neutrogena). Use warm water, rubbing gently until all debris, ooze, and crusting have been washed from the wound. Allow to dry briefly (about 10 minutes) after cleaning. Repeat this cleansing at least three times a day for the first two days and then once or twice a day. PROPHYLACTIC ANTIBIOTIC: The antibiotics which have been prescribed are designed to decrease the risk of infection. Only certain types of wounds benefit from this -- the typical cut, scrape, or burn DOES NOT require antibiotics. Of course, infection can still occur despite the use of prophylactic antibiotics. Your wound will heal with less chance of an infectious complication if you take the medication as directed. The most important dose is the FIRST dose, so don't delay filling the prescription! ORAL NARCOTIC MEDICATION: You have been given a prescription for pain control. This medication is a narcotic. It's best taken with food, as nausea can result if taken on an empty stomach. Don't operate machinery or drive within six hours of taking this medication. Do not combine this medicine with alcohol, or with any medication which can cause sedation (such as cold tablets or sleeping pills) unless you get permission from the physician. Narcotics tend to cause constipation. If possible, drink plenty of fluids and eat a diet high in fiber and fruits. FOLLOW-UP CARE: Your sutures should be removed in ___7__ days. To facilitate a timely removal of your sutures, you may return to the Emergency Department at [facility]. You do not need to call for an appointment, but the best time to come in for suture removal is early in the morning. If you have been referred to another physician for follow-up care, call that physicians office for an appointment as you were instructed. If you experience a significant change in your laceration, or if you are concerned there may be an infection (swelling, redness, drainage, increasing tenderness, red streaks, tender lumps in the armpit or groin above the laceration, or fever) , return to the Emergency Department immediately re-evaluation. Please wear your oxygen and use your inhalers as prescribed by your doctor. Please return to the ER if you have worsening wheezing, difficulty breathing, or feel unwell. Prescriptions: Cephalexin Monohydrate [Keflex 500 mg Capsule] 500 mg PO BID 5 Days #10 capsule
[2017-11-06 04:36] VITALS: BP 140/80
== END 2017-11-06 04:34 | disposition home or self-care (01) ==
LOC: ER 01:29
DX: S61.311A Laceration without foreign body of left index finger with damage to nail, initial encounter (principal); S41.111A Laceration without foreign body of right upper arm, initial encounter; W23.0XXA Caught, crushed, jammed, or pinched between moving objects, initial encounter; J44.9 Chronic obstructive pulmonary disease, unspecified; Z99.81 Dependence on supplemental oxygen; Z79.899 Other long term (current) drug therapy; F17.200 Nicotine dependence, unspecified, uncomplicated
CPT/HCPCS: 94640; 99283; 73130; 12002; A9270 ×3; J3490; J7620